=== PATIENT | male | born 1985 | race Caucasian/White ===

== ENCOUNTER 2017-03-04 08:39 | Emergency (ER) | payer SELFPAY ==
[2017-03-04 08:44] VITALS: RESP 16; TEMP 98.1
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
[2017-03-04] MEDS ORDERED: LET GEL TOPICAL 1 EA SYR TP ONE (08:53)
[2017-03-04 10:10] VITALS: BP 132/94; PULSE 75; O2SAT 97
== END 2017-03-04 10:08 | disposition home or self-care (01) ==
DX: S53.402A Unspecified sprain of left elbow, initial encounter (principal); J45.909 Unspecified asthma, uncomplicated; S50.311A Abrasion of right elbow, initial encounter; S50.312A Abrasion of left elbow, initial encounter; S80.212A Abrasion, left knee, initial encounter; S60.819A Abrasion of unspecified wrist, initial encounter; S60.419A Abrasion of unspecified finger, initial encounter; Z87.891 Personal history of nicotine dependence; V18.0XXA Pedal cycle driver injured in noncollision transport accident in nontraffic accident, initial encounter; Y92.412 Parkway as the place of occurrence of the external cause; Y99.8 Other external cause status; Y93.55 Activity, bike riding
CPT/HCPCS: A4565

== ENCOUNTER 2017-08-28 11:43 | Emergency (ER) | payer OTHER, MEDICAID ==
--- NOTE | 2017-08-28 11:57 | EDPHY ---
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 Tetanus up-to-date. No paresthesia. He is right-handed. PHYSICAL EXAM (Prior to examination, patient consented to physical exam, hands were washed and my usual and customary physical exam procedures followed) 1) GENERAL: Well-developed, well-nourished, alert and oriented. Appears to be in no acute distress. 2) HEAD: Normocephalic 3) HEENT: sclera anicteric 4) LUNGS: Breathing comfortably. 5) SKIN: Right 3rd digit distal phalanx superficial skin avulsion. No signs of infection 6) MUSCULOSKELETAL: Flexor extensor function intact no deficits. 7) NEUROLOGIC: Two-point discrimination intact Smoking Status: Former smoker Constitutional: Initial Vital Signs Temperature (C) 36.6 C 08/28/17 11:57 Heart Rate 71 08/28/17 11:57 Respiratory Rate 18 08/28/17 11:57 Blood Pressure 145/91 H 08/28/17 11:57 O2 Sat (%) 100 08/28/17 11:57 O2 Delivery Mode Room Air Allergies/Adverse Reactions: No Known Allergies Allergy (Unverified 03/04/17 08:44) Home Medications: Medication Instructions Recorded Albuterol [Proventil Inhaler HFA 1 - 2 puffs 03/04/17 (*)] Fluticasone Hfa 110 Mcg [Flovent 12 gm 03/04/17 Hfa] MDM/Departure - [facility] ED Course/Re-evaluation: Patient's wound was anesthetized with a digital nerve block with subsequent cleaning and Surgicel placement by ER staff. Usual and customary wound precautions instructions provided. Care of patient under supervision of secondary supervising physician Dr De Dios . - Depart Disposition: Home, Routine, Self-Care Clinical Impression: Avulsion of skin of finger Qualifiers: Encounter type: initial encounter Qualified Code(s): S61.209A - Unspecified open wound of unspecified finger without damage to nail, initial encounter Condition: Good Instructions: Skin Avulsion (ED) Additional Instructions: Return to the ER if you develop redness, swelling, discharge, warmth to the wound, red streaks going up your arm, or any other symptoms that concern you. Stand Alone Forms: Work Comp Follow Up Referrals: Follow-up, with your work comp provider in 2 days [Other] - As per Instructions
[2017-08-28 12:01] VITALS: RESP 18
[2017-08-28] MEDS ORDERED: TDAP ADULT 0.5 ML INJ (BOOSTRIX) IM ONE (12:02)
[2017-08-28 12:34] VITALS: BP 129/73; PULSE 63; TEMP 98.1; O2SAT 98
== END 2017-08-28 12:34 | disposition home or self-care (01) ==
LOC: EDUNIT#
PROC: 3E0T3BZ Introduction of Anesthetic Agent into Peripheral Nerves and Plexi, Percutaneous Approach (ICD-10-PCS; principal; 2017-08-28)
DX: S61.202A Unspecified open wound of right middle finger without damage to nail, initial encounter (principal); Z23 Encounter for immunization; Z87.891 Personal history of nicotine dependence; X58.XXXA Exposure to other specified factors, initial encounter; Y92.69 Other specified industrial and construction area as the place of occurrence of the external cause; Y99.0 Civilian activity done for income or pay; Y93.89 Activity, other specified

== ENCOUNTER 2017-12-19 08:06 | Emergency (ER) | payer MEDICAID, OTHER ==
[2017-12-19] MEDS ORDERED: NS 1,000 ML IV ONE (08:19)
[2017-12-19] MEDS ORDERED: METOCLOPRAMIDE 10 MG/2 ML VIAL IVP ONE (08:19)
[2017-12-19] MEDS ORDERED: KETOROLAC 30 MG/1 ML SDV IVP ONE (08:19)
--- NOTE | 2017-12-19 08:22 | EDPHY ---
HPI/HX/ROS/PE/MDM Narrative: CHIEF COMPLAINT: Headache HPI: The patient is a 32 y/o male with a history of migraines complaining of a headache onset 3 days ago, gradual in onset. The headache starts in his forehead and radiates to the back of his head. This headache is more severe than prior headaches, but similar in character. Tylenol and ibuprofen did not alleviate his symptoms. Denies recent head injury or trauma, neck pain, numbness , paresthesias. chest pain, shortness of breath, abdominal pain, urinary or bowel complaints. REVIEW OF SYSTEMS: Aside from elements discussed in the HPI, a comprehensive 10-point review of systems was reviewed and is negative. 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 ENT: Eyes are normal to inspection. ENT inspection normal. No photophobia. Neck: No meningismus. Normal inspection. Full range of motion. Respiratory: No respiratory distress. Breath sounds normal bilaterally. Cardiovascular: Regular rate and rhythm. Strong peripheral pulses. Normal cap refill. Abdomen: The abdomen is nontender to palpation. There are no peritoneal signs. There are normal bowel sounds. Back: Normal to inspection. No tenderness to palpation. Skin: Multiple tattoos. Normal color. No rash. Warm and dry. Extremities: Normal appearance. Full range of motion. Neuro: Oriented x3. Normal motor function. Normal sensory function. ED Course: 905: Patient is feeling better after treatment with reglan, IVNS and Toradol. He would like to go home. Exam unchanged. Return precautions provided; patient is comfortable with this plan. MDM: This patient presents with exacerbation of his typical migraine sx. I see no evidence to suggest SAH, CVA or meningitis. Patient was treated with [place] migraine cocktail and would now like to go home, so I do not think that further workup is currently indicated. - Data Points Medications Given: Discontinued Medications Diphenhydramine HCl (Benadryl Injection) 25 mg IVP EDNOW ONE Stop: 12/19/17 08:20 Last Admin: 12/19/17 08:38 Dose: 25 mg Sodium Chloride (Ns) 1,000 mls @ 0 mls/hr IV ONCE ONE; Wide Open PRN Reason: Protocol Stop: 12/19/17 08:20 Last Admin: 12/19/17 08:38 Dose: 1,000 mls Ketorolac Tromethamine (Toradol) 30 mg IVP EDNOW ONE Stop: 12/19/17 08:20 Last Admin: 12/19/17 08:40 Dose: 30 mg Metoclopramide HCl (Reglan Injection) 10 mg IVP EDNOW ONE Stop: 12/19/17 08:20 Last Admin: 12/19/17 08:40 Dose: 10 mg General Time Seen by Provider: 12/19/17 08:14 Initial Vital Signs: Initial Vital Signs Temperature (C) 36.5 C 12/19/17 08:08 Heart Rate 78 12/19/17 08:08 Respiratory Rate 18 12/19/17 08:08 Blood Pressure 129/87 H 12/19/17 08:08 O2 Sat (%) 93 12/19/17 08:08 O2 Delivery Mode Room Air Allergies/Adverse Reactions: No Known Allergies Allergy (Verified 12/19/17 08:07) Home Medications: Medication Instructions Recorded Albuterol [Proventil Inhaler HFA 1 - 2 puffs 03/04/17 (*)] Fluticasone Hfa 110 Mcg [Flovent 12 gm 03/04/17 Hfa] Departure - Departure Disposition: Home, Routine, Self-Care Clinical Impression: Headache Condition: Good Instructions: Migraine Headache (ED), Acute Headache (ED) Additional Instructions: Follow-up with your primary care physician within 72 hours. Return to the emergency department immediately for recurrence of headache, nausea, vomiting, numbness, weakness, neck pain, fever or other concerns. Use Tylenol and/or ibuprofen as directed. Referrals: [facility],. [Clinic] - As per Instructions Jesu Garsia MD [Medical Doctor] - As per Instructions Stand Alone Forms: Statement of Treatment Report Scribed for: Steve Branch Report Scribed by: Paige Corona Date of Report: 12/19/17 Time of Report: 08:22 Physician Review and Approval Statement: Portions of this note were transcribed by an ED scribe. I personally performed the history, physical exam, and medical decision making; and confirm the accuracy of the information in the transcribed note.
[2017-12-19 09:16] VITALS: BP 114/74
== END 2017-12-19 09:21 | disposition home or self-care (01) ==
DX: R51 Headache (principal); J45.909 Unspecified asthma, uncomplicated; E86.9 Volume depletion, unspecified
CPT/HCPCS: 96374; J1200; J1885; J2765